=== PATIENT | female | born 1975 | race Caucasian/White ===

== ENCOUNTER → 2018-04-06 10:23 | Outpatient (CLI) | payer OTHER, MEDICAID, SELFPAY ==
[2018-04-06 11:01] LABS: Hemoglobin A1C% w Est Avg Glu 9.1 % (4.0-6.0)
[2018-04-06 11:18] LABS: Alanine Aminotransferase 24 IU/L (9-52); Albumin 4.2 g/dL (3.5-5.0); Albumin Globulin Ratio 1.2 (1.0-2.8); Alkaline Phosphatase 59 U/L (38-126); Aspartate Aminotransferase 25 IU/L (14-36); Bilirubin Total 0.4 mg/dL (0.2-1.3); Blood Urea Nitrogen 15 mg/dL (7-17); Calcium 9.3 mg/dL (8.4-10.2); Carbon Dioxide 23 mmol/L (22-32); Chloride 103 mmol/L (98-107); Cholesterol 189 mg/dL (140-199); Estimated Glomerular Filt Rate > 60.0 mL/min (>60); Globulin 3.4 g/dL (1.7-4.1); Glucose 207 mg/dL (70-100); HDL Cholesterol 54 mg/dL (40-60); HEMOLYSIS 39 (0-50); LDL Cholesterol Calculated 109 mg/dL (<100); Sodium 136 mmol/L (137-145); Total Protein 7.6 g/dL (6.3-8.2); Triglycerides 130 mg/dL (35-150)
[2018-04-06 12:09] LABS: Creatinine Urine Random 157.5 mg/dL
[2018-04-06 12:13] LABS: Microalbumi Creatinin Ratio Ur 7.6 ug/mg CR (<30); Microalbumin Urine Random 1.2 mg/dL (0-1.6)
== END ==
PROVIDERS: PCP Physician Assistant; Visit Provider Physician Assistant
DX: E11.65 Type 2 diabetes mellitus with hyperglycemia (principal); Z79.4 Long term (current) use of insulin; E78.5 Hyperlipidemia, unspecified
CPT/HCPCS: 80053; 80061; 82043; 82570; 83036

== ENCOUNTER → 2021-01-02 11:24 | Outpatient (CLI) | payer OTHER, MEDICAID, SELFPAY ==
[2021-01-02 12:20] LABS: Hematocrit 37.7 % (36-46); Hemoglobin 12.3 g/dL (12.0-16.0); Mean Corpuscular HGB Conc 32.6 % (30-36); Mean Corpuscular Hemoglobin 25.5 PG (26-34); Mean Corpuscular Volume 78.2 fL (80-100); Platelet Count 230 X10^3/uL (150-400); Red Blood Cell Count 4.82 X10^6/uL (4.0-5.2); Red Cell Distribution Width 14.4 % (11.6-14.8); White Blood Cell Count 10.3 X10^3/uL (4.5-11.0)
[2021-01-02 12:42] LABS: Alanine Aminotransferase 39 IU/L (<35); Albumin Globulin Ratio 1.5 (1.0-2.8); Alkaline Phosphatase 71 U/L (38-126); Aspartate Aminotransferase 43 IU/L (14-36); BUN Creatinine Ratio 24.6 (6-22); Bilirubin Total 0.3 mg/dL (0.2-1.3); Blood Urea Nitrogen 16 mg/dL (7-17); Calcium 9.8 mg/dL (8.4-10.2); Carbon Dioxide 25 mmol/L (22-32); Chloride 100 mmol/L (98-107); Estimated Glomerular Filt Rate > 60.0 mL/min (>60); Globulin 2.7 g/dL (1.7-4.1); Glucose 290 mg/dL (70-100); HEMOLYSIS < 15 (0-50); Potassium 4.6 mmol/L (3.4-5.1); Sodium 133 mmol/L (137-145); Total Protein 6.7 g/dL (6.3-8.2)
== END ==
PROVIDERS: PCP Nurse Practitioner Family; Referring Provider Nurse Practitioner Family; Visit Provider Nurse Practitioner Family
DX: E11.65 Type 2 diabetes mellitus with hyperglycemia (principal); Z00.00 Encounter for general adult medical examination without abnormal findings; Z79.4 Long term (current) use of insulin
CPT/HCPCS: 36415; 80053; 85027

== ENCOUNTER → 2021-03-06 13:11 | Outpatient (CLI) | payer OTHER, MEDICAID, SELFPAY ==
[2021-03-06 13:52] LABS: Hematocrit 39.8 % (36-46); Hemoglobin 12.7 g/dL (12.0-16.0); Mean Corpuscular HGB Conc 31.9 % (30-36); Mean Corpuscular Volume 78.6 fL (80-100); Platelet Count 227 X10^3/uL (150-400); Red Blood Cell Count 5.06 X10^6/uL (4.0-5.2); Red Cell Distribution Width 14.9 % (11.6-14.8); White Blood Cell Count 10.5 X10^3/uL (4.5-11.0)
[2021-03-06 14:17] LABS: Creatinine Urine Random 189.1 mg/dL
[2021-03-06 14:22] LABS: Microalbumi Creatinin Ratio Ur 30.1 ug/mg CR (<30); Microalbumin Urine Random 5.7 mg/dL (0-1.6)
[2021-03-06 14:33] LABS: Alanine Aminotransferase 55 IU/L (<35); Albumin 3.9 g/dL (3.5-5.0); Albumin Globulin Ratio 1.3 (1.0-2.8); Alkaline Phosphatase 75 U/L (38-126); Aspartate Aminotransferase 51 IU/L (14-36); BUN Creatinine Ratio 25.5 (6-22); Bilirubin Total 0.4 mg/dL (0.2-1.3); Blood Urea Nitrogen 12 mg/dL (7-17); Carbon Dioxide 27 mmol/L (22-32); Chloride 100 mmol/L (98-107); Cholesterol 164 mg/dL (140-199); Estimated Glomerular Filt Rate > 60.0 mL/min (>60); Globulin 2.9 g/dL (1.7-4.1); Glucose 268 mg/dL (70-100); HDL Cholesterol 66 mg/dL (40-60); HEMOLYSIS < 15 (0-50); LDL Cholesterol Calculated 73 mg/dL (<100); Potassium 4.6 mmol/L (3.4-5.1); Sodium 136 mmol/L (137-145); Total Protein 6.8 g/dL (6.3-8.2); Triglycerides 127 mg/dL (35-150)
[2021-03-06 15:59] LABS: Free T4, Direct Thyroxine 1.19 ng/dL (0.78-2.19)
[2021-03-06 16:11] LABS: Hemoglobin A1C% w Est Avg Glu 12.1 % (4.0-6.0)
[2021-03-06 16:12] LABS: Thyroid Stimulating Hormone 1.46 uIU/mL (0.47-4.68)
== END ==
PROVIDERS: PCP Nurse Practitioner; Referring Provider Nurse Practitioner; Visit Provider Nurse Practitioner
DX: E11.65 Type 2 diabetes mellitus with hyperglycemia (principal); E78.5 Hyperlipidemia, unspecified; F32.4 Major depressive disorder, single episode, in partial remission; Z00.00 Encounter for general adult medical examination without abnormal findings; Z79.4 Long term (current) use of insulin
CPT/HCPCS: 36415; 80053; 80061; 82043; 82570; 83036; 84439; 84443; 84481; 85027

== ENCOUNTER → 2021-04-09 15:10 | Outpatient (CLI) | payer OTHER, MEDICAID, SELFPAY | PROVIDERS: PCP Nurse Practitioner; Visit Provider Nurse Practitioner | DX: N89.8 Other specified noninflammatory disorders of vagina (principal) | CPT/HCPCS: 87070; 87077; 87147; 87205 ==

== ENCOUNTER → 2021-04-14 11:33 | Outpatient (CLI) | payer OTHER, MEDICAID, SELFPAY ==
--- NOTE | 2021-04-14 11:34 | DI.RAD.S_ITS ---
PROCEDURE: XR FOOT RT MIN 3V INDICATIONS: dorsalateral right foot pain TECHNIQUE: 3 views of the foot were acquired. COMPARISON: None. FINDINGS: Bones: No fractures or dislocations. No suspicious bony lesions. Soft tissues: No tibiotalar joint effusion. Achilles tendon appears normal. IMPRESSION: No acute fracture. No osseous lesion. If symptoms and/or clinical suspicion for pathology persist, further assessment with repeat, or advanced imaging (e.g., CT, MRI, or bone scan) may be helpful for further assessment. Dictated by: Lloyd Manrique M.D. on 04/14/2021 at 12:14 Approved by: Lloyd Manrique M.D. on 04/14/2021 at 12:15
== END ==
PROVIDERS: PCP Nurse Practitioner; Referring Provider Nurse Practitioner; Visit Provider Nurse Practitioner
DX: M79.671 Pain in right foot (principal)
CPT/HCPCS: 73630

== ENCOUNTER → 2021-06-18 09:28 | Outpatient (CLI) | payer OTHER, MEDICAID, SELFPAY ==
[2021-06-18 10:55] LABS: COVID19 -Nasal RAPID Negative (Negative)
== END ==
PROVIDERS: PCP Nurse Practitioner; Visit Provider Nurse Practitioner Family
DX: R30.0 Dysuria (principal); R53.83 Other fatigue; Z20.822 Contact with and (suspected) exposure to COVID-19
CPT/HCPCS: 81002; 87077; 87086; 87186; 87635

== ENCOUNTER → 2021-06-25 07:40 | Outpatient (CLI) | payer OTHER, MEDICAID, SELFPAY ==
[2021-06-25 08:07] LABS: Appearance Urine UA CLEAR; Bilirubin Urine UA NEGATIVE (NEGATIVE); Color Urine UA YELLOW; Glucose Urine UA NEGATIVE (Negative); Ketones Urine UA NEGATIVE (NEGATIVE); Leukocyte Esterase Urine UA NEGATIVE (NEGATIVE); Nitrite Urine UA NEGATIVE (Negative); Occult Blood Urine UA TRACE-INTACT (Negative); Protein Urine UA NEGATIVE (Negative); Urobilinogen Urine UA 0.2 E.U./dL (0.2)
[2021-06-25 08:43] LABS: Bacteria Urine None Seen; Culture Indicated Urine Specimen Cultured; RBC Urine None Seen (0-5/HPF); Urine Comments Microscopic Normal; WBC Urine None Seen (0-5/HPF)
[2021-06-25 09:21] LABS: Alanine Aminotransferase 32 IU/L (<35); Albumin 3.6 g/dL (3.5-5.0); Albumin Globulin Ratio 1.2 (1.0-2.8); Alkaline Phosphatase 50 U/L (38-126); Aspartate Aminotransferase 43 IU/L (14-36); BUN Creatinine Ratio 25.5 (6-22); Bilirubin Total 0.3 mg/dL (0.2-1.3); Blood Urea Nitrogen 14 mg/dL (7-17); Calcium 9.5 mg/dL (8.4-10.2); Carbon Dioxide 30 mmol/L (22-32); Chloride 102 mmol/L (98-107); Estimated Glomerular Filt Rate > 60.0 mL/min (>60); Glucose 129 mg/dL (70-100); HEMOLYSIS 21 (0-50); Potassium 5.2 mmol/L (3.4-5.1); Sodium 138 mmol/L (137-145); Total Protein 6.6 g/dL (6.3-8.2)
== END ==
PROVIDERS: PCP Nurse Practitioner; Referring Provider Nurse Practitioner; Visit Provider Nurse Practitioner
DX: N39.0 Urinary tract infection, site not specified (principal); E11.65 Type 2 diabetes mellitus with hyperglycemia; E78.5 Hyperlipidemia, unspecified; Z79.4 Long term (current) use of insulin
CPT/HCPCS: 36415; 80053; 81001; 83036; 87086

== ENCOUNTER → 2022-01-10 09:57 | Outpatient (CLI) | payer OTHER, MEDICAID, SELFPAY ==
[2022-01-10 10:37] LABS: Hemoglobin A1C% w Est Avg Glu 8.6 % (4.0-6.0)
[2022-01-10 11:36] LABS: Alanine Aminotransferase 22 IU/L (<35); Albumin Globulin Ratio 1.3 (1.0-2.8); Alkaline Phosphatase 63 U/L (38-126); Aspartate Aminotransferase 32 IU/L (14-36); BUN Creatinine Ratio 16.9 (6-22); Bilirubin Total 0.5 mg/dL (0.2-1.3); Blood Urea Nitrogen 12 mg/dL (7-17); Calcium 8.9 mg/dL (8.4-10.2); Carbon Dioxide 28 mmol/L (22-32); Chloride 103 mmol/L (98-107); Cholesterol 172 mg/dL (140-199); Estimated Glomerular Filt Rate > 60 mL/min (>60); Glucose 169 mg/dL (70-100); HDL Cholesterol 69 mg/dL (40-60); HEMOLYSIS < 15 (0-50); LDL Cholesterol Calculated 83 mg/dL (<100); Potassium 4.5 mmol/L (3.4-5.1); Sodium 138 mmol/L (137-145); Triglycerides 102 mg/dL (35-150)
== END ==
PROVIDERS: PCP Nurse Practitioner; Referring Provider Nurse Practitioner; Visit Provider Nurse Practitioner
DX: E11.65 Type 2 diabetes mellitus with hyperglycemia (principal); E78.5 Hyperlipidemia, unspecified; Z79.899 Other long term (current) drug therapy; Z79.4 Long term (current) use of insulin
CPT/HCPCS: 36415; 80053; 80061; 83036

== ENCOUNTER → 2022-02-13 09:05 | Outpatient (CLI) | payer OTHER, MEDICAID, SELFPAY ==
[2022-02-13 10:40] LABS: COVID19 -Nasal RAPID Negative (Negative)
== END ==
PROVIDERS: PCP Nurse Practitioner; Visit Provider Surgery
DX: Z01.812 Encounter for preprocedural laboratory examination (principal); Z20.822 Contact with and (suspected) exposure to COVID-19
CPT/HCPCS: 87635; C9803

== ENCOUNTER 2022-02-14 13:17 | Day surgery (SDC) | payer OTHER, MEDICAID, SELFPAY ==
[2022-02-14] VITALS (7 sets, daily range): BP systolic 102–145; BP diastolic 66–95; PULSE 81–97; RESP 16–18; TEMP 36.3–36.8; O2SAT 94–99; BMI 49.7
--- NOTE | 2022-02-14 | PATH_ITS ---
[facility] Accession Number: [id number] . 01 Material submitted: . colon - TRANSVERSE COLON POLYP . 01 Diagnosis: Transverse Colon, Polyp, Biopsy: Tubular adenoma. MRV 02/18/2022 1525 Local . 01 Electronically signed: . Yany Feldman MD, Pathologist NPI- [id number] . 01 Gross description: . TRANSVERSE COLON POLYP: Received in formalin is 1 fragment(s) of golden, soft tissue measuring 0.2 x 0.2 x 0.2 cm submitted entirely in 1 cassette(s) /CPE 02/15/2022 0425 Local . 01 Pathologist provided ICD-10: D12.3 . 01 CPT . 073504 Specimen Comment: A courtesy copy of this report has been sent to [phone] Performed at: 01 [facility] [address] [place] [address] [id number] MD Donn Hamilton MD Phone: [phone]
[2022-02-14] MEDS: LACTATED RINGERS 1,000 ML 200 ML IV (13:52)
--- NOTE | 2022-02-14 13:53 | PM.HP.1 ---
History of Present Illness History of Present Illness Date Patient Seen: 02/14/22 Time Patient Seen: 13:53 Chief complaint: SCREENING COLONOSCOPY Narrative: Yany is here for her 1st colonoscopy. Grandmother had colon cancer at a young age. There are no other first-degree relatives with colon cancer. Patient History Medical History Abdominal hernia (Unknown) Depression (Unknown) Diabetes (Unknown) Hyperlipemia (Unknown) Morbid obesity (Unknown) Pain of right thumb Vitamin D deficiency (Unknown) Surgical History Status post hernia repair Status post tubal ligation Family & Social History Family History Brother Congestive heart failure End stage renal disease Father Diabetes mellitus type 2, controlled Mother Morbid obesity due to excess calories Kidney problem Essential hypertension Hypoglycemia Social History: household members children Tobacco & Substance use: Smoking Status Former smoker alcohol intake current alcohol intake frequency holiday/special occasion Substance Use Type marijuana Meds Home Medications and Allergies Home Medications Medication Instructions Recorded Confirmed Type Glucose: Test Strips str QDAY #60 12/03/17 01/22/22 Rx Generic Senna See Rx Instructions .ROUTE .COMPLEX 04/22/18 01/22/22 History cholecalciferol (vitamin D3) 50 50 mcg PO DAILY 01/04/21 02/14/22 History mcg (2,000 unit) capsule vitamin B complex (B 1 tab PO DAILY 01/04/21 02/14/22 History Complex-Vitamin B12) blood sugar diagnostic (Blood #400 ea 05/09/21 01/22/22 Rx Glucose Test) bupropion HCl 150 mg tablet,12 hr 150 mg PO QAM #90 ea 06/27/21 02/14/22 Rx sustained-release naproxen 500 mg tablet See Rx Instructions .ROUTE 09/24/21 02/14/22 Rx .COMPLEX #60 tab simvastatin 20 mg tablet 20 mg PO HS #90 tab 09/24/21 02/14/22 Rx insulin aspart U-100 100 unit/mL 20 unit (0.2 mL) SUBCUT TID #15 ml 01/22/22 02/14/22 Rx (3 mL) subcutaneous pen (Novolog Flexpen U-100 Insulin aspart) insulin glargine 100 unit/mL (3 45 unit (0.45 mL) SUBCUT BID #90 ml 01/22/22 02/14/22 Rx mL) subcutaneous pen (Lantus Solostar U-100 Insulin) lancets #360 ea 01/22/22 Rx metformin 500 mg tablet,extended See Rx Instructions .ROUTE 01/22/22 02/14/22 Rx release 24 hr .COMPLEX #120 tab pen needle, diabetic 31 gauge x #100 ea 01/22/22 01/22/22 Rx 5/16 (BD Ultra-Fine Short Pen Needle) peg 3350-electrolytes 236 240 ml PO Q10M #4000 ml 01/28/22 Rx gram-22.74 gram-6.74 gram-5.86 gram solution (Golytely) insulin syringe-needle U-100 0.5 See Rx Instructions .ROUTE 02/13/22 Rx mL 31 gauge x 5/16 (Sure Comfort .COMPLEX #100 ea Insulin Syringe) Allergies Allergy/AdvReac Type Severity Reaction Status Date / Time acarbose [ACARBOSE] AdvReac Intermediate Rash/Hives Verified 01/22/22 10:18 with 50 mg dose empagliflozin AdvReac Mild chronic Verified 01/22/22 10:18 [From Jardiance] vaginal yeast infection and inflammation Exam Vital Signs (past 8 hours): - 02/14/22 13:33 Temperature 97.9 F Pulse Rate 93 H Respiratory Rate 18 Blood Pressure 145/95 H Pulse Oximetry 94 Oxygen Delivery Method Room Air Const General: No acute distress Resp Effort & Inspection: normal respiratory effort Assessment & Plan Assessment and plan (1) Colon cancer screening: Status: Acute Plan We reviewed the risks benefits and rationale for colonoscopy and she would like to proceed. COVID-19 COVID-19 status: Negative Result date/Date tested (Pos, Neg/Pending): 02/13/22 Time Spent With Patient Critical Care time: I spent a total of [] minutes of critical care time on this patient's care today; this time is exclusive of procedural time.
--- NOTE | 2022-02-14 14:34 | PM.OP.COLON ---
Operative Date/Time/Diagnoses Date of procedure: 02/14/22 Time of procedure: 14:34 Pre-op diagnosis: Colon cancer screening Post-op diagnosis: same Procedure & Clinicians Study performed: Colonoscopy Same procedure as scheduled: Yes Procedure Notes Procedure in detail: Surgeon: Meño Robles MD Procedure: The patient was brought to the endoscopy suite, placed in left lateral decubitus position. The patient was connected to monitoring devices. A time-out was performed. Sedation was administered. Once the patient was adequately sedated, a digital rectal exam was performed and was normal. The scope was then inserted and advanced to the cecum where the appendiceal orifice was identified and photographed. The scope was then slowly withdrawn over greater than 6 minutes. Mucosa was thoroughly inspected. There was a polyp in the transverse colon which was about 6 mm. This was removed with a cold snare. There were no other abnormalities noted. The scope was retroflexed in the rectum. There were some mild internal hemorrhoids with no other abnormalities were noted. The scope was straightened and removed. The patient was awakened and brought to recovery. Versed: 6 mg Fentanyl: 175 mcg EBL: 5 mL Findings: 6 mm polyp in the transverse colon Scope withdrawal time: 10 Sedation minutes: 33 Post-procedure Recommendations: Will call with biopsy results Disposition: PACU
[2022-02-14] MEDS: MIDAZOLAM 5 MG/5 ML VIAL 6 MG IV (14:39)
[2022-02-14] MEDS: fentaNYL 250 MCG/5 ML INJ 175 MCG IV (14:39)
== END 2022-02-14 15:24 | disposition home or self-care (01) ==
PROVIDERS: PCP Nurse Practitioner; Referring Provider Surgery; Visit Provider Surgery
PROC: 0DJD8ZZ Inspection of Lower Intestinal Tract, Via Natural or Artificial Opening Endoscopic (ICD-10-PCS; CPT 45378; principal; 2022-02-14 14:15)
DX: Z12.11 Encounter for screening for malignant neoplasm of colon (principal); K64.8 Other hemorrhoids; D12.3 Benign neoplasm of transverse colon
CPT/HCPCS: 45385; 81025; 99152; 99153; J2250; J3010

== ENCOUNTER → 2023-02-28 08:10 | Outpatient (CLI) | payer OTHER, MEDICAID, SELFPAY ==
[2023-02-28 10:02] LABS: Alanine Aminotransferase 22 IU/L (<35); Albumin 4.1 g/dL (3.5-5.0); Albumin Globulin Ratio 1.4 (1.0-2.8); Alkaline Phosphatase 66 U/L (38-126); Aspartate Aminotransferase 30 IU/L (14-36); BUN Creatinine Ratio 22.9 (6-22); Bilirubin Total 0.6 mg/dL (0.2-1.3); Blood Urea Nitrogen 16 mg/dL (7-17); Calcium 9.5 mg/dL (8.4-10.2); Carbon Dioxide 27 mmol/L (22-32); Chloride 103 mmol/L (98-107); Cholesterol 233 mg/dL (140-199); Estimated Glomerular Filt Rate > 60 mL/min (>60); Globulin 2.9 g/dL (1.7-4.1); Glucose 134 mg/dL (70-100); HDL Cholesterol 65 mg/dL (40-60); HEMOLYSIS < 15 (0-50); LDL Cholesterol Calculated 144 mg/dL (<100); Potassium 4.7 mmol/L (3.4-5.1); Sodium 137 mmol/L (137-145); Triglycerides 121 mg/dL (35-150)
[2023-02-28 10:42] LABS: Creatinine Urine Random 65.3 mg/dL; Microalbumin Urine Random < 0.6 mg/dL (0-1.6)
[2023-02-28 10:48] LABS: Free T3, Triiodothyronine Free 4.67 pg/mL (2.77-5.27); Free T4, Direct Thyroxine 1.01 ng/dL (0.78-2.19)
[2023-02-28 11:02] LABS: Thyroid Stimulating Hormone 1.27 uIU/mL (0.47-4.68)
== END ==
PROVIDERS: PCP Nurse Practitioner; Referring Provider Nurse Practitioner; Visit Provider Nurse Practitioner
DX: E11.65 Type 2 diabetes mellitus with hyperglycemia (principal); E78.5 Hyperlipidemia, unspecified; Z79.4 Long term (current) use of insulin; Z79.899 Other long term (current) drug therapy
CPT/HCPCS: 36415; 80053; 80061; 82043; 82570; 83036; 84439; 84443; 84481

== ENCOUNTER → 2023-03-24 15:42 | Outpatient (CLI) | payer OTHER, MEDICAID, SELFPAY ==
--- NOTE | 2023-03-24 15:45 | DI.RAD.S_ITS ---
PROCEDURE: XR KNEE RT 3V INDICATIONS: right knee pain TECHNIQUE: Three views of the knee were acquired. COMPARISON: None. FINDINGS: Bones: Normal mineralization. There is a suspicious lucency the tibial spine and irregularity along the lateral aspect of the lateral tibial plateau and into the lateral metaphysis concerning for a tibial plateau fracture. Possible slight impaction deformity along the posterolateral corner of the tibial plateau. There is mild medial compartment and patellofemoral compartment joint space loss and tricompartment marginal spur formation. Soft tissues: Small joint effusion. No suspicious calcifications. IMPRESSION: 1. Findings suspicious for nondisplaced lateral tibial plateau fracture. Immobilization and CT or MRI of the knee is recommended. Dictated by: Allyson Hidalgo M.D. on 03/24/2023 at 19:39 Approved by: Allyson Hidalgo M.D. on 03/24/2023 at 19:42
== END ==
PROVIDERS: PCP Nurse Practitioner; Referring Provider Nurse Practitioner; Visit Provider Nurse Practitioner
DX: M25.561 Pain in right knee (principal)
CPT/HCPCS: 73562

== ENCOUNTER → 2023-03-31 19:09 | Outpatient (CLI) | payer OTHER, MEDICAID, SELFPAY ==
--- NOTE | 2023-03-31 19:11 | DI.MRI.S_ITS ---
PROCEDURE: MR KNEE RT WO CON INDICATIONS: Tibial plateau fracture right, abn x-ray TECHNIQUE: Noncontrast sagittal PD fast spin echo and T2 fast spin echo with fat saturation, sagittal 3-D FLASH with fat saturation; coronal T1 spin echo and PD fast spin echo with fat saturation, and axial PD fast spin echo with fat saturation through the knee. COMPARISON: [facility], CR, XR KNEE RT 3V, 03/24/2023, 15:52. FINDINGS: Image quality: Image quality is mildly degraded due to inability to use a dedicated knee coil related to patient body habitus. Diagnostic information is obtained. Anterior Cruciate Ligament: Intact. Posterior Cruciate Ligament: Intact. Medial Collateral Ligament: Thickening of the proximal medial collateral ligament is suspicious for a remote prior low-grade sprain. Lateral Collateral Ligament: Remote prior low-grade sprain of the proximal lateral collateral ligament. Medial Meniscus: Complete radial tearing is seen at the posterior root attachment of the medial meniscus with extrusion of the meniscal body beyond the femorotibial joint line. There is intrasubstance degeneration within the posterior horn and body of the medial meniscus. Lateral Meniscus: Mild intrasubstance degeneration without a discrete meniscal tear. Medial and Lateral Tendons: The semimembranosus tendon insertions and meniscocapsular junction appear intact. Visualized portions of the pes anserinus tendons appear normal. No abnormal bursal fluid. The long and short heads of the biceps femoris tendon appear intact. The popliteus tendon appears intact. No signs of posterolateral corner injury. Iliotibial band appears normal. Anterior Structures: The quadriceps and patellar tendons appear intact. No patellar subluxation. No femoral trochlear dysplasia or ventral trochlear prominence. No edema in the infrapatellar fat pad. Bones: No acute trabecular bone injury is seen. The previously noted irregularity of the lateral tibial plateau may be secondary to chronic degenerative changes or a remote prior injury. Medial Femorotibial Cartilage: Diffuse full-thickness cartilage loss is seen throughout the weight-bearing portion of the medial femorotibial compartment with subchondral edema and remodeling of the articular surfaces as well as moderately bulky marginal osteophyte formation. Lateral Femorotibial Cartilage: Mild partial-thickness cartilage irregularity and moderate marginal osteophyte formation. Patellofemoral Cartilage: High-grade versus full-thickness cartilage loss at the medial patellar facet extending to the median ridge. Cartilage fissuring is seen in the trochlear groove. Small marginal osteophytes are present. Soft Tissues: Small joint effusion. Small medial popliteal cyst. The musculature surrounding the knee is normal in bulk. An accessory muscle is seen at the lateral head of the gastrocnemius muscle inserting onto the posterior femoral metaphysis. No impingement of the popliteal neurovascular bundle is seen. IMPRESSION: 1. No acute trabecular bone injury or fracture. Previously seen irregularity of the lateral tibial plateau on prior radiographs may be secondary to chronic degenerative changes or remote prior trauma. 2. Diffuse full-thickness cartilage loss throughout the weight-bearing portion of the medial femorotibial compartment with remodeling of the articular surfaces. Grade 2 chondromalacia is seen in the lateral compartment and there is grade 3-4 chondromalacia in the anterior compartment. Tricompartmental marginal osteophytes. 3. Radial tearing at the posterior root attachment of the medial meniscus with extrusion of the meniscal body beyond the femorotibial joint line. 4. Mild intrasubstance degeneration in the lateral meniscus without a discrete tear. 5. Chronic low-grade sprains of the medial and lateral collateral ligaments. 6. Small joint effusion. Small medial popliteal cyst. Approved by: Enrrique Lynch M.D. on 04/01/2023 at 9:30
== END ==
PROVIDERS: PCP Nurse Practitioner; Referring Provider Nurse Practitioner; Visit Provider Nurse Practitioner
DX: S82.141A Displaced bicondylar fracture of right tibia, initial encounter for closed fracture (principal); S83.241A Other tear of medial meniscus, current injury, right knee, initial encounter; M94.261 Chondromalacia, right knee; S83.411A Sprain of medial collateral ligament of right knee, initial encounter; S83.421A Sprain of lateral collateral ligament of right knee, initial encounter; M25.461 Effusion, right knee; M71.21 Synovial cyst of popliteal space [Baker], right knee; M25.561 Pain in right knee
CPT/HCPCS: 73721

== ENCOUNTER → 2024-11-15 08:40 | Outpatient (CLI) | payer OTHER, SELFPAY | PROVIDERS: PCP Nurse Practitioner; Visit Provider Nurse Practitioner Family | DX: N94.9 Unspecified condition associated with female genital organs and menstrual cycle (principal) | CPT/HCPCS: 87210 ==

== ENCOUNTER 2024-11-17 10:10 | Emergency (ER) | payer MEDICAID, SELFPAY ==
[2024-11-17 10:16] VITALS: BP 141/83; PULSE 83; RESP 22; TEMP 36.4; O2SAT 96
--- NOTE | 2024-11-17 10:30 | ED.GENADULT ---
HPI - General Adult General Stated complaint: pelvic pain, hurts to sit/walk/stand Time Seen by Provider: 11/17/24 10:30 History of Present Illness HPI narrative: Patient is a 49-year-old female with past medical history of diabetes depression hyperlipidemia presents to the emergency department for evaluation of pelvic pain, she states that this has been ongoing persistent for the past several days, patient has been seen at the walk-in clinic on 11/15/2024 for the same. At that time patient was diagnosed with a yeast infection was prescribed fluconazole 150 mg. To note she also states that she is history of hemorrhoids which have been bothering her, she states that the pain in her rectum is what brings her in today. She states that she is worried she might be developing a fistula because on the outside of her rectum she feels there is a ?hole. She denies any bright red blood per rectum denies any other GI/ symptoms at this time. Related Data Previous Rx's Medication Instructions Recorded fluconazole 150 mg tablet 150 mg PO Q3D 2 doses #2 tabs 11/15/24 hydrocortisone acetate 25 mg 25 mg [place] TID 7 days #21 ea 11/17/24 rectal suppository (Anusol-HC) Allergies Allergy/AdvReac Type Severity Reaction Status Date / Time acarbose [ACARBOSE] AdvReac Intermediate Rash/Hives Verified 11/15/24 08:02 with 50 mg dose empagliflozin AdvReac Mild chronic Verified 11/15/24 08:02 [From Jardiance] vaginal yeast infection and inflammation Review of Systems Review of Systems Narrative: General: Denies fever, chills, weight loss HEENT: Denies headache, eye drainage, eye irritation, head trauma, sore throat, voice change Cardiovascular: Denies any chest pain, palpitations, tachycardia Respiratory: Denies any shortness of breath, cough, wheeze, stridor GI/: Positive rectal pain. Denies any abdominal pain, nausea, vomiting, diarrhea, bright red blood per rectum, melanotic stools, urinary frequency, urinary retention, dysuria, hematuria MSK: Denies any joint pain, muscle pains, swelling Skin: Denies any rashes, lesions, discoloration Neuro: Denies any headache, lightheadedness, dizziness, fainting, weakness Psych: Denies SI/HI Patient History Medical History (Updated 11/17/24 @ 10:42 by Codey Kaur, DO) Class 3 obesity Vitamin D deficiency (Unknown) Morbid obesity (Unknown) Diabetes (Unknown) Depression (Unknown) Abdominal hernia (Unknown) Surgical History (Updated 03/13/23 @ 09:03 by ITALIA Donnelly) History of hernia repair Status post tubal ligation Status post hernia repair Family History Brother Congestive heart failure End stage renal disease Father Diabetes mellitus type 2, controlled Mother Morbid obesity due to excess calories Kidney problem Essential hypertension Hypoglycemia Social History household members: children Smoking Status: Former smoker Tobacco: How many years used: 15 second hand exposure: No alcohol intake: current substance use type: does not use Smoking Status: Former smoker alcohol intake frequency: holidays/special occasions only Exam Narrative Exam Narrative: General: Cooperative, comfortable, well-developed, not in acute distress HEENT: Normocephalic, atraumatic, PERRLA, normal sclera, eyelids normal, Neck: Active full range of motion, atraumatic Chest: Normal to inspection, negative crepitus, no overlying erythema ecchymosis Respiratory: Normal respiratory effort, not in acute respiratory distress, clear to auscultation bilaterally negative cough, wheeze, tachypnea, rhonchi, rales Cardiology: Regular rate rhythm negative gallop, murmur, rubs GI/: Normal to inspection, soft, nonrigid, no tenderness to palpation, rectal exam: Nurse Brandon as marketing development representative. Patient with palpable internal hemorrhoid as well as visible external hemorrhoids no fissures no bright red blood per rectum, Hemoccult negative. MSK: Full range of active range of motion of all 4 extremities, atraumatic Skin: No rashes lesions noted Neuro: Alert awake oriented x3, moves all 4 extremities spontaneously, cranial nerves intact, able to answer all questions appropriately follows commands appropriately Psych: Cooperative, negative suicidal or homicidal ideations Initial Vital Signs Initial Vital Signs: Vital Signs Temperature 97.6 F 11/17/24 10:16 Pulse Rate 83 11/17/24 10:16 Respiratory Rate 22 11/17/24 10:16 Blood Pressure 141/83 H 11/17/24 10:16 Pulse Oximetry 96 11/17/24 10:16 Oxygen Delivery Method Room Air 11/17/24 10:16 Course Vital Signs Vital signs: Vital Signs - 8 hr 11/17/24 10:16 11/17/24 10:16 Temperature 97.6 F Pulse Rate 83 Respiratory Rate 22 Blood Pressure 141/83 H Pulse Oximetry 96 Oxygen Delivery Method Room Air Medical Decision Making Differential Diagnosis Differential Diagnosis: Fissure, internal hemorrhoid, external hemorrhoid MDM Narrative Medical decision making narrative: 49-year-old female with diabetes hypertension hyperlipidemia hemorrhoids presents to emergency department for rectal pain. She states that the pain has been ongoing persistent for the past several days has had persistent symptoms and is worried that she may be developing a fistula in her rectal region. But no history of Crohn's abscess IBS or fistula formation previously. On exam rectally patient with internal and external hemorrhoids noted no fissures noted negative Hemoccult. Patient had Proctofoam placed for symptomatic relief. Patient will be discharged home with Anusol and instructed to follow up with GI and primary care in outpatient setting. Patient does have an appointment this Friday with a primary care doctor. Discharge Plan Departure Patient Disposition: Home Clinical Impression: Hemorrhoid Instructions: DI for Hemorrhoids Activity Restrictions/Additional Instructions: Please follow up with primary care for your scheduled appointment, please follow up with GI Please read the discharge instructions sheet carefully and bring all papers to all doctor follow-up visits, as it may contain information that your doctor may want to see. Disease processes change and evolve, if your symptoms worsen or if you develop any new symptoms that are concerning to you please return for evaluation. Your evaluation today does not show any evidence of any life-threatening/serious illnesses requiring admission to the hospital or surgery. Please follow-up with your doctor for re-evaluation in approximately 1 day. Seek immediate medical attention for any worrisome symptoms. *If you do not have a primary care provider please contact the [facility] Resource line at [phone]. They will ask some questions about your medical history and help get you set up with a doctor in the community. Prescriptions: New hydrocortisone acetate [Anusol-HC] 25 mg suppository 25 mg [place] TID 7 Days Qty: 21 0RF No Action fluconazole 150 mg tablet 150 mg PO Q3D 0 Days Qty: 2 0RF Rx Instructions: One tablet today, next tablet in 3 days Referrals: Garima Boyd ARNP [Primary Care Provider] - Stand Alone Forms: Patient Portal/API/Survey
[2024-11-17 10:41] VITALS: BP 126/63; PULSE 83; RESP 18; TEMP 36.7; O2SAT 96; BMI 52.1
[2024-11-17] MEDS: HC/PRAMOXINE 10GM FOAM 1 APPLIC PR (11:17)
[2024-11-17 11:18] VITALS: PULSE 88; RESP 18; O2SAT 97
== END 2024-11-17 11:20 | disposition home or self-care (01) ==
PROVIDERS: Emergency Provider Student in an Organized Health Care Education/Training Program; PCP Nurse Practitioner
DX: K64.9 Unspecified hemorrhoids (principal)
CPT/HCPCS: 99282

== ENCOUNTER → 2024-11-19 08:38 | Outpatient (CLI) | payer OTHER, SELFPAY ==
--- NOTE | 2024-11-19 08:39 | DI.RAD.S_ITS ---
PROCEDURE: XR KNEE RT 3V INDICATIONS: right hip and knee pain TECHNIQUE: 3 views of the knee were acquired. COMPARISON: [facility], , XR KNEE RT 3V, 03/24/2023, 15:52. FINDINGS: Bones: There is slight deformity lateral tibial plateau in the region of a solidly unified old fracture. Joints: Moderate medial tibial femoral and patellofemoral degenerative change appreciated Small effusion noted. Soft tissues: Normal IMPRESSION: Moderate patellofemoral and medial tibial femoral degeneration. Small effusion. . Dictated by: Filiberto Tinoco M.D. on 11/19/2024 at 11:39 Approved by: Filiberto Tinoco M.D. on 11/19/2024 at 11:41
--- NOTE | 2024-11-19 08:39 | DI.RAD.S_ITS ---
PROCEDURE: XR HIP W PEL IF DONE RT 2V INDICATIONS: right hip and knee pain TECHNIQUE: AP pelvis with lateral view(s) of the right hip(s). COMPARISON: None. FINDINGS: Bones: There are no osseous abnormalities. SI and hip joints: Normal in width and alignment without arthritic change Soft tissues: There is generalized increased soft tissue density and gas overlying both hips. IMPRESSION: Increased soft tissue density and gas overlying both hips. The patient could have bilateral hernias or soft tissue abscess with gas. Suggest pelvic CT Dictated by: Filiberto Tinoco M.D. on 11/19/2024 at 11:37 Approved by: Filiberto Tinoco M.D. on 11/19/2024 at 11:39
== END ==
PROVIDERS: Referring Provider Family Medicine; Visit Provider Family Medicine
DX: M25.551 Pain in right hip (principal); M25.561 Pain in right knee; M25.461 Effusion, right knee
CPT/HCPCS: 73502; 73562

== ENCOUNTER → 2025-09-02 10:10 | Outpatient (CLI) | payer OTHER, SELFPAY ==
[2025-09-02 11:18] LABS: Add Manual Diff / Slide Review NO; Hematocrit 42.0 % (36-46); Hemoglobin 14.2 g/dL (12.0-16.0); Lymphocytes Absolute Auto 2300 /uL (1100-4500); Mean Corpuscular HGB Conc 33.8 % (30-36); Mean Corpuscular Hemoglobin 27.1 PG (26-34); Mean Corpuscular Volume 80.1 fL (80-100); Platelet Count 247 X10^3/uL (150-400)
[2025-09-02 11:33] LABS: Hemoglobin A1C% w Est Avg Glu 10.8 % (4.0-6.0)
[2025-09-02 11:36] LABS: Alanine Aminotransferase 21 IU/L (<35); Albumin 4.4 g/dL (3.5-5.0); Albumin Globulin Ratio 1.5 (1.0-2.8); Alkaline Phosphatase 70 U/L (38-126); Blood Urea Nitrogen 13 mg/dL (7-17); Calcium 9.8 mg/dL (8.4-10.2); Carbon Dioxide 26 mmol/L (22-32); Chloride 101 mmol/L (98-107); Cholesterol 239 mg/dL (140-199); Estimated Glomerular Filt Rate > 60 mL/min (>60); Globulin 2.9 g/dL (1.7-4.1); Glucose 207 mg/dL (70-99); HDL Cholesterol 56 mg/dL (40-60); HEMOLYSIS < 15 (0-50); Potassium 4.6 mmol/L (3.4-5.1); Sodium 136 mmol/L (137-145); Total Protein 7.3 g/dL (6.3-8.2); Triglycerides 159 mg/dL (35-150)
[2025-09-02 12:08] LABS: TSH w/ Reflex to FT4 0.65 uIU/mL (0.47-4.68)
[2025-09-02 14:11] LABS: Microalbumi Creatinin Ratio Ur 17.0 ug/mg CR (<30)
== END ==
PROVIDERS: PCP Family Medicine; Referring Provider Family Medicine; Visit Provider Family Medicine
DX: E11.65 Type 2 diabetes mellitus with hyperglycemia (principal); E66.01 Morbid (severe) obesity due to excess calories; Z79.4 Long term (current) use of insulin
CPT/HCPCS: 36415; 80053; 80061; 82043; 82172; 82570; 83036; 84443; 85025